=== PATIENT | male | born 1965 | race African-American/Black ===

== ENCOUNTER 2020-08-02 21:38 | Inpatient (IN) | payer SELFPAY ==
[2020-08-02 22:17] LABS: ABSOLUTE EOSINOPHILS # (AUTO) 0.1 10^3/uL (0.0-0.6); ABSOLUTE LYMPHOCYTES (AUTO) 0.7 10^3/uL (0.5-4.7); ABSOLUTE MONOCYTES (AUTO) 0.5 10^3/uL (0.1-1.4); ABSOLUTE NEUT (AUTO) 7.2 10^3/uL (1.7-8.2); BASOPHILS % (AUTO) 0.3 % (0-2); EOSINOPHILS % (AUTO) 1.1 % (0-6); HEMATOCRIT 46.8 % (37.9-51.0); HEMOGLOBIN 15.8 g/dL (13.5-17.0); LYMPHOCYTES % (AUTO) 8.4 % (13-45); MEAN CORPUSCULAR HEMOGLOBIN 32.4 pg (27.0-33.4); MEAN CORPUSCULAR HGB CONC 33.7 g/dL (32.0-36.0); MEAN CORPUSCULAR VOLUME 96 fl (80-97); MONOCYTES % (AUTO) 5.4 % (3-13); PLATELET COUNT 195 10^3/uL (150-450); RED BLOOD COUNT 4.86 10^6/uL (4.35-5.55); RED CELL DISTRIBUTION WIDTH 13.8 % (11.5-14.0); SEGMENTED NEUTROPHILS % (AUTO) 84.8 % (42-78); TOTAL CELLS COUNTED % (AUTO) 100 %; WHITE BLOOD COUNT 8.5 10^3/uL (4.0-10.5)
[2020-08-02 22:24] LABS: APPEARANCE,URINE CLEAR; BILIRUBIN,URINE NEGATIVE (NEGATIVE); COLOR,URINE YELLOW; GLUCOSE, URINE NEGATIVE (NEGATIVE); KETONES,URINE NEGATIVE (NEGATIVE); LEUKOCYTE ESTERASE,URINE NEGATIVE (NEGATIVE); NITRITE,URINE NEGATIVE (NEGATIVE); PROTEIN,URINE 30 mg/dL (NEGATIVE); URINE SPECIFIC GRAVITY 1.017; UROBILINOGEN,URINE NEGATIVE mg/dL (<2.0)
--- NOTE | 2020-08-02 22:30 | RADIOLOGY REPORT (SQ) ---
EXAM DESCRIPTION: XR CHEST 1 VIEW COMPLETED DATE/TME: 08/02/2020 21:55 CLINICAL HISTORY: 55 years, Male, shortness of breath COMPARISON: None. NUMBER OF VIEWS: 1 TECHNIQUE: Portable AP upright view of the chest was obtained at 9:50 PM. LIMITATIONS: None. FINDINGS: Heart size is normal. Lungs appear clear. There is no evidence of pleural effusion or pneumothorax. IMPRESSION: No acute abnormality as above. copyright 2010 [employer]- All Rights Reserved
[2020-08-02 22:36] LABS: ALBUMIN 4.8 g/dL (3.5-5.0); ALKALINE PHOSPHATASE 81 U/L (38-126); ANION GAP 7 (5-19); ASPARTATE AMINO TRANSFERASE 38 U/L (17-59); BILIRUBIN,DIRECT 0.3 mg/dL (0.0-0.4); BILIRUBIN,TOTAL 0.4 mg/dL (0.2-1.3); BLOOD UREA NITROGEN 16 mg/dL (7-20); CALCIUM 9.5 mg/dL (8.4-10.2); CARBON DIOXIDE 27 mmol/L (22-30); CHLORIDE 104 mmol/L (98-107); CREATINE KINASE 718 U/L (55-170); GLUCOSE 153 mg/dL (75-110); POTASSIUM 4.5 mmol/L (3.6-5.0); TOTAL PROTEIN 8.3 g/dL (6.3-8.2)
[2020-08-02 22:48] LABS: CREATINE KINASE MB 5.68 ng/mL (<4.55)
[2020-08-02 22:55] LABS: TROPONIN I 0.108 ng/mL
[2020-08-03] MEDS ORDERED: IPRATROPIUM/ALBUTEROL 0.5-2.5 MG/3 ML AMPUL NEB ONE (00:02)
--- NOTE | 2020-08-03 00:02 | ER Document Report ---
ED Respiratory Problem - General Chief Complaint: Breathing Difficulty Stated Complaint: SOB Time Seen by Provider: 08/02/20 23:14 - HPI Notes: Patient is a 55-year-old male with a past medical history of COPD who presents with shortness of breath. Patient states that he has been short of breath for about a week and has a dry cough. He denies any fevers or chills. No known Covid contacts. No nausea or vomiting. No loss of taste or smell. Patient states he has tightness in his chest when he coughs. He denies any chest pain at rest. EMS was called to the house today for shortness of breath. Per reports, he was tripoding. They placed him on 6 L nasal cannula which improved his symptoms. He is now on 3 L nasal cannula. Patient still has some tachypnea but states he is feeling much better. - Related Data Allergies/Adverse Reactions: No Known Allergies Allergy (Unverified 06/15/11 22:48) Past Medical History - General Information source: Patient - Social History Smoking Status: Current Every Day Smoker Chew tobacco use (# tins/day): No Frequency of alcohol use: None Drug Abuse: None Family History: Reviewed & Not Pertinent Patient has homicidal ideation: No Pulmonary Medical History: Reports: Hx COPD - Immunizations Hx Diphtheria, Pertussis, Tetanus Vaccination: No Review of Systems - Review of Systems Notes: CONSTITUTIONAL: No fever, fatigue or weight loss. SKIN: No rash. HENT: No congestion, ear pain, or sore throat. EYES: No recent vision problems or eye pain. CARDIOVASCULAR: Positive for chest tightness only when coughing. RESPIRATORY: Positive for cough, wheezing, shortness of breath. GASTROINTESTINAL: No abdominal pain, nausea, vomiting, bloody stools or diarrhea. MUSCULOSKELETAL: No joint pain or swelling. LYMPHATIC: No swollen glands. NEUROLOGIC: No seizures. No headache, focal weakness or sensory changes. HEMATOLOGIC: No unusual bruising or bleeding. PSYCHIATRIC: No depression or anxiety. Physical Exam - Vital signs Vitals: Pulse Ox 96 08/02/20 21:43 - General General appearance: Appears well In distress: None Notes: VITAL SIGNS: On 3 L nasal cannula. GENERAL: No acute distress, non-toxic appearance. HEAD: Normal with no signs of head trauma. EYES: Conjunctiva normal, no discharge. EARS: Hearing grossly intact. NOSE: Normal. NECK: Normal range of motion. Supple. No JVD. CHEST: Wheezing in all lung steward. CARDIAC: Regular rate and rhythm. S1 and S2, without murmurs, gallops, or rubs. VASCULAR: No Edema. ABDOMEN: Normal and soft with no tenderness. MUSCULOSKELETAL: Good range of motion of all major joints. Extremities without clubbing, cyanosis or edema. NEUROLOGICAL: Alert and oriented x 3. No focal sensory or strength deficits. Speech normal. Follows commands appropriately. PSYCHIATRIC: Normal Affect, judgement and mood. SKIN: Normal appearance with no rashes or lesions. Course - Re-evaluation Re-evalutation: 08/03/20 00:01 Patient states he is feeling better. He does not normally wear oxygen at home. Patient does have an elevated troponin which is different from his baseline. He is denying any chest pain at rest and only when he coughs. Patient second troponin is slightly elevated. I reassessed him. He is denying any chest pain. I will discuss with the hospitalist for admission for COPD exacerbation 08/03/20 02:41 - Vital Signs Vital signs: Temp Pulse Resp BP Pulse Ox 97.9 F 70 16 108/64 93 08/03/20 23:33 08/04/20 02:00 08/04/20 01:46 08/03/20 23:33 08/04/20 01:46 - Laboratory Results Result Diagrams: 08/04/20 05:05 08/04/20 05:05 Laboratory Results Interpreted: 08/02/20 08/02/20 08/02/20 22:04 22:04 22:04 Lymph % (Auto) 8.4 L Seg Neutrophils % 84.8 H Glucose 153 H Creatine Kinase 718 H CK-MB (CK-2) 5.68 H Total Protein 8.3 H Urine Protein 08/02/20 22:04 Lymph % (Auto) Seg Neutrophils % Glucose Creatine Kinase CK-MB (CK-2) Total Protein Urine Protein 30 H Critical Laboratory Results Reviewed: Yes Attending or Supervising Physician who Reviewed Labs: MARYBEL RENNER - Radiology Results Critical Radiology Results Reviewed: No Critical Results - EKG Interpretation by Ak EKG shows normal: Sinus rhythm Rate: Tachycardia Rhythm: NSR When compared to previous EKG there are: Previous EKG unavailable Additional EKG results interpreted by me: 08/03/20 01:56 Sinus tachycardia at a rate of 116. QTc 439. No acute ST changes. Artifact present. No previous EKG available for comparison. Discharge - Discharge Clinical Impression: COPD exacerbation, Elevated troponin Condition: Stable Disposition: ADMITTED INPATIENT Admitting Provider: Samira (Hospitalist) Unit Admitted: Telemetry
[2020-08-03] MEDS ORDERED: ASPIRIN 325 MG TABLET PO ONE (00:03)
[2020-08-03] MEDS ORDERED: NORMAL SALINE 1000 ML 1,000 ML IV ONE (02:33)
[2020-08-03] MEDS ORDERED: IPRATROPIUM/ALBUTEROL 0.5-2.5 MG/3 ML AMPUL NEB PRN (03:02)
--- NOTE | 2020-08-03 03:16 | PDOC H&P ---
History of Present Illness Admission Date/PCP: 08/03/20 03:02 TAYLOR DAWKINS MD History of Present Illness: INOCENCIA COOPER is a 55 year old male with a history of COPD who still smokes who came in with a history of shortness of breath since 9:00 Monday morning. He said he switched to the vape stick a couple of days ago but he has been smoking a pack a day or more for decades. He said he had cut himself down to a half a pack a day before he switched over to the vape stick a couple of days ago. He said he been feeling fine and was in his usual state of health until Monday mo rn. He said he was short of breath but was denying any chest pain. He had not been running a fever. He had not been coughing. He said he did a nebulizer treatment around 9 AM Monday morning and he felt a little better afterwards. He said he was short of breath again throughout the day and around 4 PM Monday he did another breathing treatment. He said his was at work at the [employer] in [place] and he called her around 7:30 PM Monday and was telling that he was still feeling short of breath and she convinced him to call EMS and he was subsequently brought to this hospital. He has had another nebulizer treatment here. They put him on a little bit of oxygen and he says he feels better when he sitting up. He is not wheezing as bad now, but he said the EMS guys told him that they could hear him wheezing as soon as they came through his front door. He says his only known medical problem is COPD. He said he knows that he needs to quit smoking altogether. His troponin in the ER was slightly elevated but his EKG was unremarkable and he was not complaining of any chest pain at all. He said he is never had any kind of cardiac work-up before. Past Medical History Pulmonary Medical History: Reports: Chronic Obstructive Pulmonary Disease (COPD) Past Surgical History Past Surgical History: Reports: None Social History Smoking Status: Current Every Day Smoker Electronic Cigarette use?: No Family History Family History: Hyperlipidemia, Hypertension, Thyroid Disfunction Parental Family History Reviewed: Yes Children Family History Reviewed: Yes Sibling(s) Family History Reviewed.: Yes Medication/Allergy Home Medications: No Home Medications 06/15/11 Allergies/Adverse Reactions: No Known Allergies Allergy (Unverified 06/15/11 22:48) Review of Systems All systems: reviewed and no additional remarkable complaints except as stated - All systems were reviewed and were negative except as noted in the HPI Physical Exam Vital Signs: Temp Pulse Resp BP Pulse Ox 98.5 F 116 H 17 105/79 95 08/02/20 21:44 08/02/20 21:44 08/03/20 02:00 08/03/20 02:00 08/03/20 02:00 Intake & Output 08/01/20 08/02/20 08/03/20 06:59 06:59 06:59 Weight 74.843 kg General appearance: PRESENT: no acute distress, cooperative Head exam: PRESENT: atraumatic, normocephalic Eye exam: PRESENT: EOMI, PERRLA. ABSENT: conjunctival injection, nystagmus, scleral icterus Ear exam: PRESENT: normal external ear exam Mouth exam: PRESENT: moist, neck supple Throat exam: ABSENT: post pharyngeal erythema Neck exam: PRESENT: full ROM. ABSENT: carotid bruit, JVD, lymphadenopathy, meningismus, tenderness, thyromegaly Respiratory exam: PRESENT: prolonged expiratory phas, rhonchi, symmetrical, unlabored, wheezes - Faint end expiratory, worse on the right. ABSENT: accessory muscle use, chest wall tenderness, crackles, tachypnea Cardiovascular exam: PRESENT: RRR, +S1, +S2 Pulses: PRESENT: normal carotid pulses Vascular exam: PRESENT: normal capillary refill GI/Abdominal exam: PRESENT: normal bowel sounds, soft. ABSENT: distended, guarding, rebound, tenderness Extremities exam: ABSENT: clubbing, pedal edema Musculoskeletal exam: PRESENT: normal inspection. ABSENT: deformity Neurological exam: PRESENT: alert, awake, oriented to person, oriented to place, oriented to time, oriented to situation, CN II-XII grossly intact. ABSENT: motor sensory deficit Psychiatric exam: PRESENT: appropriate affect, normal mood Skin exam: PRESENT: dry, warm Results Laboratory Results: 08/02/20 22:04 08/02/20 22:04 08/02/20 08/02/20 08/02/20 22:04 22:04 22:04 WBC 8.5 RBC 4.86 Hgb 15.8 Hct 46.8 MCV 96 MCH 32.4 MCHC 33.7 RDW 13.8 Plt Count 195 Seg Neutrophils % 84.8 H Sodium 137.8 Potassium 4.5 Chloride 104 Carbon Dioxide 27 Anion Gap 7 BUN 16 Creatinine 0.96 Est GFR ( Amer) > 60 Glucose 153 H Calcium 9.5 Total Bilirubin 0.4 AST 38 Alkaline Phosphatase 81 Total Protein 8.3 H Albumin 4.8 Urine Color YELLOW Urine Appearance CLEAR Urine pH 5.0 Ur Specific [place] 1.017 Urine Protein 30 H Urine Glucose (UA) NEGATIVE Urine Ketones NEGATIVE Urine Blood NEGATIVE Urine Nitrite NEGATIVE Ur Leukocyte Esterase NEGATIVE Urine WBC (Auto) 5 Urine RBC (Auto) 0 08/02/20 08/02/20 08/03/20 22:04 22:04 01:00 Creatine Kinase 718 H CK-MB (CK-2) 5.68 H Troponin I 0.108 0.229 NT-Pro-B Natriuret Pep 24 Impressions: Chest X-Ray 08/02/20 21:41 IMPRESSION: No acute abnormality as above. copyright 2010 [employer]- All Rights Reserved Assessment and Plan - Diagnosis (1) COPD with acute exacerbation Is this a current diagnosis for this admission?: Yes (2) Current every day smoker Is this a current diagnosis for this admission?: Yes (3) Elevated troponin Is this a current diagnosis for this admission?: Yes - Plan Summary Summary: He was not started on any steroids in the ER, so we will put him on a few doses of IV Solu-Medrol, which I think will produce a good effect. As needed DuoNeb treatments. We will wean O2 as tolerated. We will put him empirically on some doxycycline as it may reduce the number of days that he is symptomatic. I think his elevated troponin is most likely a type II event due to increased demand. EKG is unremarkable. We will keep him on telemetry and give him an aspirin and will continue to trend his troponins. If he resolves back to baseline, we may need to set him up with a stress test as an outpatient because he has been a smoker for a very long time and would probably benefit from a work-up. - Time Time Spent with patient: 35 or more minutes Anticipated Discharge Disposition: Home, Self Care Anticipated Discharge Timeframe: within 72 hours - Inpatient Certification Based on my medical assessment, after consideration of the patient's comorbidities, presenting symptoms, or acuity I expect that the services needed warrant INPATIENT care.: Yes I certify that my determination is in accordance with my understanding of Medicare's requirements for reasonable and necessary INPATIENT services [42 CFR 412.3e].: Yes Medical Necessity: Need Close Monitoring Due to Risk of Patient Decompensation, Need For Continuous Telemetry Monitoring, Risk of Complication if Not Cared For in Hospital
[2020-08-03] MEDS: METHYLPREDNISOLONE INJ 40 MG/1 ML SDV IV SCH ×3 (05:06→21:06)
[2020-08-03] MEDS ORDERED: DOXYCYCLINE HYCLATE 100 MG TABLET PO ONE (05:54)
[2020-08-03] MEDS: DOXYCYCLINE HYCLATE 100 MG TABLET PO SCH ×2 (06:04→09:59)
[2020-08-03] MEDS: HEPARIN SOD (PORCINE) 5,000 UNIT/ML 1 ML VIAL SUBCUT SCH ×3 (06:05→21:05)
--- NOTE | 2020-08-03 06:10 | EKG REPORT ---
SEVERITY:- ABNORMAL ECG - SINUS TACHYCARDIA RIGHT ATRIAL ABNORMALITY BORDERLINE RIGHT AXIS DEVIATION : Confirmed by: Andry Ng MD 03-Aug-2020 06:10:08
--- NOTE | 2020-08-03 10:00 | EKG REPORT ---
SEVERITY:- ABNORMAL ECG - SINUS RHYTHM PROBABLE ANTEROSEPTAL INFARCT, AGE INDETERM Minimal ST elevation in inferior leads ABNORMAL T, CONSIDER ISCHEMIA, ANT-LAT LEADS PROLONGED QT INTERVAL : Confirmed by: Brian Peres MD 03-Aug-2020 10:00:04
[2020-08-03] MEDS: ASPIRIN 81 MG TABLET, CHEWABLE PO SCH (10:02)
[2020-08-03] MEDS: IPRATROPIUM/ALBUTEROL 0.5-2.5 MG/3 ML AMPUL NEB SCH ×2 (13:30→19:51)
--- NOTE | 2020-08-03 21:08 | XCELERA REPORT ---
[address] [address] Transthoracic Echocardiogram Report Name: INOCENCIA COOPER Age: 55 yrs Gender: Male : 1965 Patient Status: Inpatient Patient Location: [address] [place] [address] Study Date: 08/03/2020 06:20 PM Height: 76 in Weight: 157 lb BSA: 2.0 m2 Procedure: A complete two-dimensional transthoracic echocardiogram was performed (2D, M-mode, spectral and color flow Doppler). The study was technically limited with all images being suboptimal in quality. Images from the parasternal window were difficult to obtain and are suboptimal in quality. The apical views were difficult to obtain and are suboptimal in quality. Reason For Study: new ecg changes, Elevated troponin Ordering Physician: MAGDALENA SCHAFER Performed By: Kirstie Queen Interpretation Summary The left ventricle is grossly normal size. Left ventricular systolic function is normal. The Ejection Fraction estimate is 55-60%. Doppler measurements suggest impaired left ventricular relaxation, which is associated with grade I/IV or mild diastolic dysfunction. Regional wall motion abnormalities cannot be excluded due to limited visualization. Aortic, tricuspid and pulmonic valves are not well visualized therefore cannot comment on possible structural abnormalities. No prior studies for comparison. MMode/2D Measurements & Calculations RVDd: 2.2 cm LVIDd: 4.9 cm FS: 30.5 % Ao root diam: 3.3 cm IVSd: 0.98 cm LVIDs: 3.4 cm EDV(Teich): Ao root area: 113.3 ml LVPWd: 0.76 cm 8.3 cm2 ESV(Teich): 47.8 mlLA dimension: 2.1 cm EF(Teich): 57.8 % LVLd ap4: 6.7 cm SV(MOD-sp4): EDV(MOD-sp4): 46.0 ml 68.0 ml LVLs ap4: 5.0 cm ESV(MOD-sp4): 22.0 ml EF(MOD-sp4): 67.6 % Doppler Measurements & Calculations MV E max rosa: MV P1/2t max rosa: Ao V2 max: LV V1 max P.7 cm/sec 77.4 cm/sec 108.1 cm/sec 3.3 mmHg MV A max rosa: MV P1/2t: 60.3 msec Ao max PG: LV V1 max: 66.5 cm/sec 4.7 mmHg 90.2 cm/sec MVA(P1/2t): 3.6 cm2 MV E/A: 0.94 MV dec slope: 375.6 cm/sec2 MV dec time: 0.24 sec PA V2 max: MV P1/2t-pr_phl: 84.5 cm/sec 60.3 msec PA max P.9 mmHg Left Ventricle The left ventricle is grossly normal size. Left ventricular systolic function is normal. The Ejection Fraction estimate is 55-60%. Doppler measurements suggest impaired left ventricular relaxation, which is associated with grade I/IV or mild diastolic dysfunction. Regional wall motion abnormalities cannot be excluded due to limited visualization. Right Ventricle The right ventricle is normal in size, thickness and function. The right ventricular systolic function is normal. Atria The right atrium is normal. The left atrial size is normal. Interarterial septum not well visualized and not well dopplered. Cannot comment on ASD/PFO presence. Mitral Valve There is mild mitral leaflet calcification. There is no evidence of mitral valve prolapse. There is no mitral valve stenosis. There is no mitral regurgitation noted. Aortic Valve The aortic valve is not well visualized secondary to technical limitations. There is no aortic valve stenosis. No aortic regurgitation is present. Tricuspid Valve The tricuspid valve is not well visualized secondary to technical limitations. No tricuspid regurgitation. Pulmonic Valve The pulmonic valve is not well visualized. There is no pulmonic valvular stenosis. There is no pulmonic valvular regurgitation. Great Vessels The inferior vena cava appeared normal and decreased > 50% with respiration (RAP 5-10 mmHg). Effusions There is no pericardial effusion. Large left pleural effusion. : MAGDALENA SCHAFER Antonio
[2020-08-04] MEDS: IPRATROPIUM/ALBUTEROL 0.5-2.5 MG/3 ML AMPUL NEB SCH ×3 (01:46→13:05)
[2020-08-04] MEDS: HEPARIN SOD (PORCINE) 5,000 UNIT/ML 1 ML VIAL SUBCUT SCH ×2 (05:05→13:25)
[2020-08-04] MEDS: METHYLPREDNISOLONE INJ 40 MG/1 ML SDV IV SCH (05:05)
[2020-08-04 05:48] LABS: HEMATOCRIT 45.5 % (37.9-51.0); HEMOGLOBIN 15.2 g/dL (13.5-17.0); MEAN CORPUSCULAR HEMOGLOBIN 31.8 pg (27.0-33.4); MEAN CORPUSCULAR HGB CONC 33.3 g/dL (32.0-36.0); MEAN CORPUSCULAR VOLUME 95 fl (80-97); PLATELET COUNT 189 10^3/uL (150-450); RED BLOOD COUNT 4.77 10^6/uL (4.35-5.55); RED CELL DISTRIBUTION WIDTH 14.1 % (11.5-14.0); WHITE BLOOD COUNT 9.3 10^3/uL (4.0-10.5)
[2020-08-04 06:05] LABS: ANION GAP 9 (5-19); BLOOD UREA NITROGEN 19 mg/dL (7-20); CALCIUM 9.4 mg/dL (8.4-10.2); CARBON DIOXIDE 23 mmol/L (22-30); CHLORIDE 105 mmol/L (98-107); CHOLESTEROL 186.86 mg/dL (0-200); GLUCOSE 151 mg/dL (75-110); POTASSIUM 4.5 mmol/L (3.6-5.0); TRIGLYCERIDES 53 mg/dL (<150)
[2020-08-04 06:16] LABS: DIRECT LDL 60 mg/dL (<100)
--- NOTE | 2020-08-04 09:28 | EKG REPORT ---
SEVERITY:- ABNORMAL ECG - SINUS RHYTHM LEFT POSTERIOR FASCICULAR BLOCK PROBABLE INFERIOR INFARCT, AGE INDETERMINATE ABNORMAL T, PROBABLE ISCHEMIA, ANT-LAT LEADS PROLONGED QT INTERVAL : Confirmed by: Brian Peres MD 04-Aug-2020 09:26:31
[2020-08-04] MEDS: ASPIRIN 81 MG TABLET, CHEWABLE PO SCH (09:35)
--- NOTE | 2020-08-04 09:53 | PDOC CONSULTATION ---
Consultation Consult Date: 08/04/20 Attending physician:: MAGDALENA SCHAFER Provider Consulted: BERNABE BOBBY Consult reason:: Elevated troponin History of Present Illness Admission Date/PCP: 08/03/20 03:02 TAYLOR DAWKINS MD History of Present Illness: INOCENCIA COOPER is a 55 year old male with a history of COPD, active smoking, without history of coronary artery disease and with questionable family history of premature coronary artery disease who is consulted to our service for evaluation of abnormal EKG and elevated troponins. The patient was evaluated in our emergency room on 08/02/2020 when he was brought in by EMS due to shortness of breath for several days. He was eventually admitted and diagnosed with COPD exacerbation. His initial EKG was unremarkable although he did have elevated troponins. Eventually his EKG changed and now demonstrates nonspecific ST-T wave changes particularly significant T wave inversions however the patient continues to be asymptomatic. When specifically asked, he adamantly denies chest pain, diaphoresis, other anginal equivalents, palpitations, syncope and presyncope. 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 He has remained asymptomatic since admission. His telemetry shows normal sinus rhythm and episodes of sinus tachycardia. His troponin peaked at 0.300 and is trending now with the most recent one being 0.156. Physical exam on 08/04/2020: GENERAL: Pleasant and conversational. Oriented x3 with normal mood. Not in acute distress. Well groomed and well developed. HEENT: Normocephalic, atraumatic. Pupils equal. Sclerae anicteric. Oropharynx moist. NECK: No JVD. No carotid bruits. LUNGS: Deep inspiratory, faint wheezing at the left lower lobe. Normal respira tory effort without the use of accessory muscles or intercostal retractions. CARDIOVASCULAR: Regular rate and rhythm, normal S1 and S2 without murmurs, rubs, or gallops. PMI not displaced. ABDOMEN: No masses or tenderness to palpation. No bruit. No splenomegaly or hepatomegaly. No abdominal aorta bruit noted. EXTREMITIES: No edema, no cyanosis, no clubbing. +2 pulses femoral and pedal pulses bilaterally. SKIN: No lesions or rashes. MUSCULOSKELETAL: No chest tenderness to palpation. NEUROLOGIC: Nonfocal. No gross sensory or motor deficits bilateral upper or lower extremities. Cardiac studies: Echocardiogram on 08/03/2020: -Normal LV systolic function. -EF 55 to 60%. -Grade 1 diastolic dysfunction. -Cannot assess for regional wall motion abnormalities. -Aortic, tricuspid and pulmonic valves were not well visualized. -No prior studies for comparison. Past Medical History Pulmonary Medical History: Reports: Chronic Obstructive Pulmonary Disease (COPD) Psychiatric Medical History: Denies: Depression Past Surgical History Past Surgical History: Reports: None Social History Smoking Status: Current Every Day Smoker Cigarettes Packs Per Day: 0.5 Electronic Cigarette use?: Yes Frequency of Alcohol Use: Social Hx Recreational Drug Use: No Drugs: None Hx Prescription Drug Abuse: No Family History Family History: Reviewed & Not Pertinent Parental Family History Reviewed: Yes Children Family History Reviewed: Yes Sibling(s) Family History Reviewed.: Yes Medication/Allergy Home Medications: Albuterol Sulfate [Proair Digihaler] 2 puff IH Q4HP PRN 08/03/20 Ipratropium/Albuterol Sulfate [Duoneb 3 ml Ampul] 3 ml NEB RTQ6HP PRN 08/03/20 Allergies/Adverse Reactions: No Known Allergies Allergy (Unverified 06/15/11 22:48) Physical Exam Vital Signs: Temp Pulse Resp BP Pulse Ox 97.9 F 70 16 108/64 93 08/03/20 23:33 08/04/20 02:00 08/04/20 01:46 08/03/20 23:33 08/04/20 01:46 Intake & Output 08/03/20 08/04/20 08/05/20 06:59 06:59 06:59 Intake Total 1260 985 Balance 1260 985 Weight 74.3 kg 68.7 kg Results Laboratory Results: 08/04/20 05:05 08/04/20 05:05 08/04/20 08/04/20 05:05 05:05 WBC 9.3 RBC 4.77 Hgb 15.2 Hct 45.5 MCV 95 MCH 31.8 MCHC 33.3 RDW 14.1 H Plt Count 189 Sodium 136.9 L Potassium 4.5 Chloride 105 Carbon Dioxide 23 Anion Gap 9 BUN 19 Creatinine 0.90 Est GFR ( Amer) > 60 Glucose 151 H Calcium 9.4 Triglycerides 53 Cholesterol 186.86 LDL Cholesterol Direct 60 VLDL Cholesterol 11.0 HDL Cholesterol 110 08/02/20 08/02/20 08/03/20 22:04 22:04 01:00 Creatine Kinase 718 H CK-MB (CK-2) 5.68 H Troponin I 0.108 0.229 NT-Pro-B Natriuret Pep 24 08/03/20 08/03/20 08/03/20 07:17 12:54 19:48 Creatine Kinase CK-MB (CK-2) Troponin I 0.300 0.233 0.156 NT-Pro-B Natriuret Pep Impressions: Chest X-Ray 08/02/20 21:41 IMPRESSION: No acute abnormality as above. copyright 2010 [employer]- All Rights Reserved 08/04/20 05:05 08/04/20 05:05 MCV 95 fl (80-97) 08/04/20 05:05 MCH 31.8 pg (27.0-33.4) 08/04/20 05:05 MCHC 33.3 g/dL (32.0-36.0) 08/04/20 05:05 RDW 14.1 % (11.5-14.0) H 08/04/20 05:05 Seg Neutrophils % 84.8 % (42-78) H 08/02/20 22:04 Chloride 105 mmol/L (98-107) 08/04/20 05:05 Carbon Dioxide 23 mmol/L (22-30) 08/04/20 05:05 Anion Gap 9 (5-19) 08/04/20 05:05 Est GFR ( Amer) > 60 (>60) 08/04/20 05:05 Glucose 151 mg/dL (75-110) H 08/04/20 05:05 Calcium 9.4 mg/dL (8.4-10.2) 08/04/20 05:05 Total Bilirubin 0.4 mg/dL (0.2-1.3) 08/02/20 22:04 AST 38 U/L (17-59) 08/02/20 22:04 Alkaline Phosphatase 81 U/L (38-126) 08/02/20 22:04 Total Protein 8.3 g/dL (6.3-8.2) H 08/02/20 22:04 Albumin 4.8 g/dL (3.5-5.0) 08/02/20 22:04 Triglycerides 53 mg/dL (<150) 08/04/20 05:05 Cholesterol 186.86 mg/dL (0-200) 08/04/20 05:05 LDL Cholesterol Direct 60 mg/dL (<100) 08/04/20 05:05 VLDL Cholesterol 11.0 mg/dL (10-31) 08/04/20 05:05 HDL Cholesterol 110 mg/dL (>40) 08/04/20 05:05 Urine Color YELLOW 08/02/20 22:04 Urine Appearance CLEAR 08/02/20 22:04 Urine pH 5.0 (5.0-9.0) 08/02/20 22:04 Ur Specific [place] 1.017 08/02/20 22:04 Urine Protein 30 mg/dL (NEGATIVE) H 08/02/20 22:04 Urine Glucose (UA) NEGATIVE mg/dL (NEGATIVE) 08/02/20 22:04 Urine Ketones NEGATIVE mg/dL (NEGATIVE) 08/02/20 22:04 Urine Blood NEGATIVE (NEGATIVE) 08/02/20 22:04 Urine Nitrite NEGATIVE (NEGATIVE) 08/02/20 22:04 Ur Leukocyte Esterase NEGATIVE (NEGATIVE) 08/02/20 22:04 Urine WBC (Auto) 5 /HPF 08/02/20 22:04 Urine RBC (Auto) 0 /HPF 08/02/20 22:04 08/02/20 08/02/20 08/03/20 22:04 22:04 01:00 Creatine Kinase 718 H CK-MB (CK-2) 5.68 H Troponin I 0.108 0.229 NT-Pro-B Natriuret Pep 24 08/03/20 08/03/20 08/03/20 07:17 12:54 19:48 Creatine Kinase CK-MB (CK-2) Troponin I 0.300 0.233 0.156 NT-Pro-B Natriuret Pep Current Medication List Generic Name Dose Route Start Last Admin Trade Name Freq PRN Reason Stop Dose Admin Albuterol/Ipratropium 3 ml 08/03/20 03:02 08/03/20 10:11 Ipratropium/Albuterol 0.5-2.5 Mg/3 Ml Ampul NEB 09/02/20 03:01 3 ml RTQ4HP PRN Administration SHORTNESS OF BREATH Albuterol/Ipratropium 3 ml 08/03/20 14:00 08/04/20 01:46 Ipratropium/Albuterol 0.5-2.5 Mg/3 Ml Ampul NEB 09/02/20 13:59 3 ml RTQ6 JACLYN Administration Aspirin 81 mg 08/03/20 10:00 08/03/20 10:02 Aspirin 81 Mg Tablet, Chewable PO 09/02/20 09:59 81 mg DAILY JACLYN Administration Heparin Sodium (Porcine) 5,000 unit 08/03/20 06:00 08/04/20 05:05 Heparin Sod (Porcine) 5,000 Unit/Ml 1 Ml Vial SUBCUT 09/02/20 05:59 Not Given Q8 JACLYN Methylprednisolone Sodium Succinate 40 mg 08/03/20 04:00 08/04/20 05:05 Methylprednisolone Inj 40 Mg/1 Ml Sdv IV 09/02/20 03:59 40 mg Q8 JACLYN Administration Discontinued Medications Generic Name Dose Route Start Last Admin Trade Name Freq PRN Reason Stop Dose Admin Albuterol/Ipratropium 3 ml 08/03/20 00:02 08/03/20 00:09 Ipratropium/Albuterol 0.5-2.5 Mg/3 Ml Ampul NEB 08/03/20 00:03 3 ml NOW ONE Administration Aspirin 325 mg 08/03/20 00:03 08/03/20 00:09 Aspirin 325 Mg Tablet PO 08/03/20 00:04 325 mg NOW ONE Administration Doxycycline Hyclate 100 mg 08/03/20 04:00 08/03/20 09:59 Doxycycline Hyclate 100 Mg Tablet PO 08/10/20 03:59 Not Given Q12 JACLYN Doxycycline Hyclate Confirm 08/03/20 05:54 08/03/20 06:04 Doxycycline Hyclate 100 Mg Tablet Administered 08/03/20 05:55 Not Given Dose 100 mg PO .STK-MED ONE Sodium Chloride 1,000 mls @ 0 mls/hr 08/03/20 02:33 08/03/20 04:40 Nacl 0.9% 1000 Ml Iv Soln IV 08/03/20 02:34 Infused BOLUS ONE Infusion Wide Open Assessment & Plan - Diagnosis (1) Elevated troponin Is this a current diagnosis for this admission?: Yes Plan: The patient does have an elevated troponin which is downtrending in the presence of abnormal EKG but no angina or anginal equivalents. He does have cardiac risk factors for coronary artery disease therefore he warrants further ischemic assessment. Given his normal ejection fraction and grossly normal wall motion on his echocardiogram yesterday as well as his ability to exercise we will plan for exercise nuclear stress test tomorrow morning. When I discussed my plan with him he verbalized that his is having surgery tomorrow morning and would like to be discharged from the hospital to be with her. I explained to him that my preference is for him to stay in the hospital can do this as an inpatient for an expedited ischemic work-up given his EKG changes and elevated troponin, he was also explained that he wanted to leave the hospital he would have to sign an AMA form. At the end of the conversation he had not made a final decision. I instructed him to let the nurses and the hospitalist know immediately whether he wants to stay or leave AMA for me to order the radioisotope. In the meantime, we will plan for stress test tomorrow. Recommendations: -Do not start beta-cindy yet in preparation for exercise nuclear stress test tomorrow. -Start Lipitor 40 mg nightly. -LFTs. -Plan for exercise nuclear stress test tomorrow if patient decides to stay in the hospital. -N.p.o. after midnight. -Continue with cardiac telemetry. (2) COPD with acute exacerbation Is this a current diagnosis for this admission?: Yes Plan: Further recommendations per hospitalist team.
[2020-08-04] MEDS ORDERED: METHYLPREDNISOLONE INJ 40 MG/1 ML SDV IV SCH (10:00)
--- NOTE | 2020-08-04 11:45 | PDOC PROGRESS REPORT ---
Subjective Date:: 08/04/20 Subjective:: Patient states he feels better. Shortness of breath has improved remarkably. H e is not having any chest pain. Reason For Visit: COPD EXACERBATION,ELEBATED TROPONIN Physical Exam Vital Signs: Temp Pulse Resp BP Pulse Ox 97.9 F 84 18 150/89 H 96 08/04/20 08:36 08/04/20 07:42 08/04/20 07:42 08/04/20 07:42 08/04/20 07:42 Intake & Output 08/03/20 08/04/20 08/05/20 06:59 06:59 06:59 Intake Total 1260 985 330 Balance 1260 985 330 Weight 74.3 kg 68.7 kg General appearance: PRESENT: no acute distress, cooperative Neck exam: ABSENT: JVD Respiratory exam: PRESENT: symmetrical, unlabored, wheezes - Minimal respiratory wheeze. ABSENT: tachypnea Cardiovascular exam: PRESENT: RRR, +S1, +S2. ABSENT: tachycardia GI/Abdominal exam: PRESENT: soft. ABSENT: rebound, rigid, tenderness Musculoskeletal exam: PRESENT: ambulatory Neurological exam: PRESENT: alert, awake, oriented to person, oriented to place, oriented to time, oriented to situation Results Laboratory Results: 08/04/20 05:05 08/04/20 05:05 08/04/20 08/04/20 05:05 05:05 WBC 9.3 RBC 4.77 Hgb 15.2 Hct 45.5 MCV 95 MCH 31.8 MCHC 33.3 RDW 14.1 H Plt Count 189 Sodium 136.9 L Potassium 4.5 Chloride 105 Carbon Dioxide 23 Anion Gap 9 BUN 19 Creatinine 0.90 Est GFR ( Amer) > 60 Glucose 151 H Calcium 9.4 Triglycerides 53 Cholesterol 186.86 LDL Cholesterol Direct 60 VLDL Cholesterol 11.0 HDL Cholesterol 110 08/02/20 08/02/20 08/03/20 22:04 22:04 01:00 Creatine Kinase 718 H CK-MB (CK-2) 5.68 H Troponin I 0.108 0.229 NT-Pro-B Natriuret Pep 24 08/03/20 08/03/20 08/03/20 07:17 12:54 19:48 Creatine Kinase CK-MB (CK-2) Troponin I 0.300 0.233 0.156 NT-Pro-B Natriuret Pep Impressions: Chest X-Ray 08/02/20 21:41 IMPRESSION: No acute abnormality as above. copyright 2010 [employer]- All Rights Reserved Assessment and Plan - Diagnosis (1) COPD with acute exacerbation Is this a current diagnosis for this admission?: Yes (2) Current every day smoker Is this a current diagnosis for this admission?: Yes (3) Elevated troponin Is this a current diagnosis for this admission?: Yes - Plan Summary Summary: Yesterday, patient's troponin is peaked around 0.3. EKGs did show some new nonspecific T wave changes. I consulted cardiology who evaluated patient this morning and recommended ischemic evaluation with stress test while inpatient given the likelihood of underlying CAD. Plan was to do the stress test tomorrow. My encounter with patient this morning, patient stated that he wanted to be discharged today because his has a surgical procedure tomorrow morning he would like to take her to the hospital and bring her back and also be there while she was at home. I explained to him the necessity of the recommend ation for him to get the stress test done inpatient and also explained to him the risks of having a myocardial infarction or cardiac event and consequences of this should he choose to go home without having the stress test done. He understood the risk and opted to sign out AMA. I will give him prescriptions for his COPD exacerbation, sublingual nitro as needed, baby aspirin and will try to set him up with an outpatient follow-up cardiology appointment. - Time Time Spent with patient: 15-24 minutes Anticipated Discharge Disposition: Home, Self Care Anticipated Discharge Timeframe: n/a
--- NOTE | 2020-08-04 11:45 | Left Against Medical Advice ---
Against Medical Advice Admission Date/Time: 08/03/20 03:02 Primary Care Provider: TAYLOR DAWKINS MD Date of Patient Emigration: 08/04/20 - Diagnosis: (1) COPD with acute exacerbation Is this a current diagnosis for this admission?: Yes (2) Current every day smoker Is this a current diagnosis for this admission?: Yes (3) Elevated troponin Is this a current diagnosis for this admission?: Yes - Summary: Summary: Please see Admission and Progress Notes as well. INOCENCIA COOPER is a 55 M, who LEFT AGAINST MEDICAL ADVICE. The Patient was admitted on 08/03/20 03:02.
[2020-08-04 13:00] VITALS: BP 128/70
--- OUTSIDE RECORDS SUMMARY | 2020-08-05 09:17 | XMS REPORT ---
:1965 [facility] [place] [address] [place] [id number] Care Team Providers Name Role Phone gK Attending Clinician Unavailable BUSTEED, A Attending Clinician Unavailable MARCELINA PORTILLO Attending Clinician Unavailable BUSTEED, A Admitting Clinician Unavailable Allergies, Adverse Reactions, Alerts This patient has no known allergies or adverse reactions. Medications Ordered Filled Start Stop Current Ordering Indication Dosage Frequency Signature Comments Components Medication Medication Date Date Medication? Clinician (SIG) Name Name Hydrocodone 2019-0 Yes 5 Every 12 /Chlorphen 1-24 Hours as Polistir* 08:45: needed for 00 Cough Albuterol 2019-0 Yes 2 Every 4 Sulfate 1-24 Hours as 08:32: needed for 00 Shortness Of Breath Prednisone 2019-0 Yes 1 As 1-24 Directed 08:32: Days 1-4: 00 Take 6 tabs; days 5-8: take 4 tabs; days 9-12: take 2 tabs; Hydrocodone 2019- No 5 Every 12 /Chlorphen -25 - Hours Polistir* 10:16: 00:00 00 :00 Azithromyci 2017-0 2019- No 1 2 Today & n -25 08-04 1 Day 2-5 10:11: 00:00 00 :00 Azithromyci 2017-0 No August 1 2 Today & n 1-25 Pa-C 1 Day 2-5 (Zithromax 00:00: Mortgage Professional Z-Ernst*) 250 00 Mg Tablet Hydrocodone No August 5 Every 12 /Chlorphen 1-25 Pa-C Hours Polistir* 00:00: Mortgage Professional (Tussionex* 00 ) 473 Ml Marlen.er.12h Acetaminoph 2012-07 2020- No 1 As Needed en/Hydrocod 18 01-23 Every 6 To one Bitart 03:33: 00:00 8 Hours 00 :00 Penicillin 2012-07- No 500 Every 6 V Potassium -18 08-01 Hours 03:33: 00:00 00 :00 Acetaminoph 2012-07 No Juliana C 1 As Neede d en/Hydrocod -18 Romero Do Every 6 To one Bitart 00:00: 8 Hours (Hydrocodon 00 -Acetaminop hen 5-500) 5 Mg/500 Mg Tab Penicillin 2012-07- No Juliana C 500 Every 6 V Potassium -28 Romero Do Hours (Pen Vk 00:00: 00:00 Tab*) 500 00 :00 Mg Tablet Acetaminoph 2012- No 1 As Needed en/Hydrocod 11-3018 Every 6 To one Bitart 00:42: 00:00 8 Hours 00 :00 Cyclobenzap 2012- No 10 Prn Q8h rine Hcl 11-30 Muscle 00:42: 00:00 Spasm 00 :00 Acetaminoph 2012- No Juliana C 1 As Neede d en/Hydrocod 11-3018 Romero Do Every 6 To one Bitart 00:00: 00:00 8 Hours (Hydrocodon 00 :00 -Acetaminop hen 5-500) 5 Mg/500 Mg Tab, 1 Tablet Oral Cyclobenzap 2012- No Juliana C 10 Prn Q8h rine Hcl 10 11-3018 Romero Do Muscle Mg Tab, 10 00:00: 00:00 Spasm Mg Oral 00 :00 Cyclobenzap 2006- No 10 Prn Q8h rine Hcl 07-24 Muscle 15:57: 00:00 Spasm No 00 :00 driving or heavy lifting. May cause drowsiness . Ibuprofen 2006- No 1 Prn Q6h -10 Pain/Fever 15:57: 00:00 Take with 00 :00 food. Oxycodone/A 2006- No Q 4 Hr Prn cetaminophe 07-2410 Pain No n 15:57: 00:00 driving or 00 :00 heavy lifting. May cause drowsiness . Cyclobenzap 2006- No Elyssa N 10 Prn Q8h rine Hcl 10 07-24 Aminata Sandoval Muscle Mg Tab, 10 00:00: 00:00 Spasm Mg Oral 00 :00 Ibuprofen 2006- No Elyssa N 1 Prn Q6h (Ibuprofen 07-24 Aminata Sandoval Pain/Fever 800 Mg) 800 00:00: 00:00 Mg Tablet, 00 :00 1 Ea Oral Oxycodone/A Elyssa N 1 Q 4 Hr Prn cetaminophe 07-24 Aminata Sandoval Pain n (Percocet 00:00: 00:00 5/325 Mg*) 00 :00 5 Mg/325 Mg Tab, 1 - 2 Ea Oral No Home 2012- No Medications 05-27 1 Ea Ea, 00:00 :00 No Home 2012- No Medications 05-27 00:00 :00 No Home 2006- No Medications 03-19 1 Ea Ea, 00:00 :00 No Home 2006- No Medications 03-19 00:00 :00 Problems Condition Condition Condition Status Onset Resolution Last Treatin g Comments Name Details Category Date Date Treatment Clinician Date Upper Problem Inactiv respiratory e 1-25 infection 10:11: 00 Dyspnea Dyspnea Problem Inactiv e Upper Upper Problem Active respiratory respiratory tract tract infection infection Acute Acute Problem Active exacerbatio exacerbatio n of n of chronic chronic obstructive obstructive pulmonary pulmonary disease disease Tobacco Tobacco Problem Active abuse abuse Procedures Procedure Date / Time Performed Performing Clinician Devic e OFFICE/OUTPATIENT VISIT EST 2020-04-13 14:15:00 Results Test Description Test Time Test Comments Text Results Atomic Results Result Comments Blood leukocytes automated count (number/volume) 2019-08-02 06:1 0:00 Test Item Value Reference Range Comments White Blood Count (test code = 6690-2) 8.6 3.6-11.1 Blood erythrocytes automated count (number/volume)2019-08-02 06:10:00 Test Item Value Reference Range Comments Red Blood Count (test code = 789-8) 4.39 4.27-5.49 Blood hemoglobin measurement (mass/volume)2019-08-02 06:10:00 Test Item Value Reference Range Comments Hemoglobin (test code = 718-7) 14.4 12.9-16.1 Automated blood hematocrit (volume fraction)2019-08-02 06:10:00 Test Item Value Reference Range Comments Hematocrit (test code = 4544-3) 42.2 37.7-46.5 Automated erythrocyte mean corpuscular [id number] 06:10:00 Test Item Value Reference Range Comments Mean Corpuscular Volume (test code = 787-2) 96.1 79.3 -94.8 Automated erythrocyte mean corpuscular hemoglobin (mass per erythrocyte) 2019-08-02 06:10:00 Test Item Value Reference Range Comments Mean Corpuscular Hemoglobin (test code = 785-6) 32.7 26.8-33.2 Automated erythrocyte mean corpuscular hemoglobin concentration measurement (mass/volume)2019-08-02 06:10:00 Test Item Value Reference Range Comments Mean Corpuscular Hemoglobin Concent (test code = 34.1 33.5-35.5 786-4) Automated erythrocyte distribution width [id number] 06:10:00 Test Item Value Reference Range Comments Red Cell Distribution Width (test code = 788-0) 13.3 12.0-15.1 Automated blood platelet count (count/volume)2019-08-02 06:10:00 Test Item Value Reference Range Comments Platelet Count (test code = 777-3) 174 165-353 Automated blood platelet mean volume omotjwycexw3768-16-79 06:10:00 Test Item Value Reference Range Comments Mean Platelet Volume (test code = 71585-2) 9.1 7.5-1 0.6 Automated blood neutrophil count as percentage of total wkltekyraz3110-09-59 06:10:00 Test Item Value Reference Range Comments Neutrophils (%) (Auto) (test code = 770-8) 79.7 43.2- 71.5 Automated blood lymphocyte count as percentage of total vubsfvkqdr5025-47-39 06:10:00 Test Item Value Reference Range Comments Lymphocytes (%) (Auto) (test code = 736-9) 9.1 16.8- 43.4 Automated blood monocyte count as percentage of total dildzusnih7460-82-38 06:10:00 Test Item Value Reference Range Comments Monocytes (%) (Auto) (test code = 5905-5) 11.1 4.6-12 .4 Automated blood eosinophil count as percentage of total pbhmfroigr2029-43-87 06:10:00 Test Item Value Reference Range Comments Eosinophils (%) (Auto) (test code = 713-8) 0.0 0.7-7 .8 Automated blood basophil count as percentage of total ojfwghehjk4062-73-20 06:10:00 Test Item Value Reference Range Comments Basophils (%) (Auto) (test code = 706-2) 0.1 0.2-1.2 Blood neutrophils automated count (number/volume)2019-08-02 06:10:00 Test Item Value Reference Range Comments Neutrophils # (Auto) (test code = 751-8) 6.8 1.9-7.2 Automated blood lymphocyte count (number/volume)2019-08-02 06:10:00 Test Item Value Reference Range Comments Lymphocytes # (Auto) (test code = 731-0) 0.8 1.1-2.7 Blood monocytes automated count (number/volume)2019-08-02 06:10:00 Test Item Value Reference Range Comments Monocytes # (Auto) (test code = 742-7) 1.0 0.3-0.8 Automated blood eosinophil helth9967-74-64 06:10:00 Test Item Value Reference Range Comments Eosinophils # (Auto) (test code = 711-2) 0.0 0.0-0.5 Automated blood basophil count (count/volume)2019-08-02 06:10:00 Test Item Value Reference Range Comments Basophils # (Auto) (test code = 704-7) 0.0 0.0-0.1 Sodium xjerg4319-88-73 06:10:00 Test Item Value Reference Range Comments Sodium Level (test code = 346724072) 141 137-144 Potassium scgcg1644-03-53 06:10:00 Test Item Value Reference Range Comments Potassium Level (test code = 358824598) 4.1 3.1-5.1 Chloride yhwjw9883-82-99 06:10:00 Test Item Value Reference Range Comments Chloride Level (test code = 226351133) 108 101-110 Carbon dioxide elewp6627-60-79 06:10:00 Test Item Value Reference Range Comments Carbon Dioxide Level (test code = 33902756) 24 22-2 9 Glucose otrcq9381-44-14 06:10:00 Test Item Value Reference Range Comments Glucose Level (test code = 46360899) 112 70-105 [id number] 06:10:00 Test Item Value Reference Range Comments Blood Urea Nitrogen (test code = 558001590) 18.0 8.4- 25.7 Creatinine xeitm0546-71-62 06:10:00 Test Item Value Reference Range Comments Creatinine (test code = 418837037) 1.00 0.72-1.25 Estimation of creatinine nbshggrua6563-19-75 06:10:00 Test Item Value Reference Range Comments Estimated Creatinine Clearance 82.05 P T Ht: 185.42cm, PT Wt: 67.9KG Calc (test code = 414339906) Anion gap uvkoyqmkkuw4733-42-76 06:10:00 Test Item Value Reference Range Comments Anion Gap (test code = 27238285) 13 7-16 Xnnlfbn9370-30-29 06:10:00 Test Item Value Reference Range Comments Calcium Level (test code = 51640989) 9.3 8.4-10.2 LHMKPKCAX8156-09-82 08:22:[address] [id number] Patient: INOCENCIA COOPER : 1965 Sex: M Address:[address] [place] [address] Unit #: [id number] REQ SEQ #: [id number] Location: ED Room #: Ordering: MAUREEN DUFFY DO Diagnosis: DIFFICULTY BREATHING CHEST 2 VIEWS PA AND LATERAL Clinical Information: Dyspnea Comparison: 08/03/2017 FINDINGS: Heart size and pulmonary vasculature within normal limits. Pulmonary queta within normal limits. No pulmonary consolidation, pneumothorax or pleural effusions. No acute osseous abnormality. IMPRESSION:No evidence of acute cardiopulmonary disease. Final report electronically signed by: Megan Shea DO Signed by: LONG SHEA DO 08/01/19 0818 cc: [facility] [id number] 07:45:00 Test Item Value Reference Range Comments Bedside Troponin I (test code = Bedside Troponin I) 0.00 0.03-0.118 pH venous bogqx8836-83-50 07:43:00 Test Item Value Reference Range Comments Venous Blood pH (test code = 2746-6) 7.39 7.32-7.45 Venous blood partial pressure of carbon dioxide qopjsuyrqiy6398-42-25 07:43:00 Test Item Value Reference Range Comments Venous Blood Partial Pressure CO2 (test code = 2021-4) 42 45-60 Venous blood partial pressure of oxygen usoywnzjblk5845-14-51 07:43:00 Test Item Value Reference Range Comments Venous Blood Partial Pressure O2 (test code = 2705-2) 44 35-40 Venous blood oxygen saturation calculated from oxygen partial bhssexwx9304-46-26 07:43:00 Test Item Value Reference Range Comments Venous Blood Oxygen Saturation (test code = 22545-0) 79 65-75 Quantitative venous blood bicarbonate liznyvmopul3324-25-29 07:43:00 Test Item Value Reference Range Comments Venous Blood HCO3 (test code = 50371-4) 25 22-27 Base excess, venous ooruv0260-25-58 07:43:00 Test Item Value Reference Range Comments Venous Blood Base Excess (test code = 1927-3) -1 -2 -2 Blood Gas Patient Qoosadnxth1764-01-90 07:43:00 Test Item Value Reference Range Comments Blood Gas Patient Conditions (test code = Blood Gas RA Patient Conditions) Blood Gas Puncture Vlsp5111-35-64 07:43:00 Test Item Value Reference Range Comments Blood Gas Puncture Site (test code = VENOUS CATHETER SITE Blood Gas Puncture Site) Brain natriuretic ixfmcyv8249-08-05 07:38:00 Test Item Value Reference Range Comments B-Type Natriuretic Peptide < 10.0 0.0-100.0 Plasm a concentrations of (test code = 818743880) natriure tic peptides may be elevated in abimael ents with acute myocardial infar ction and renal insufficiency. [id number] 10:06:[address] [id number] ------ Patient: INOCENCIA COOPER : 1965 Sex: M Address: [address] [place] [address] Unit #: [id number] REQ SEQ#: [id number] Location: ANA Room #: Ordering: AUGUST PORTILLO PA-C Diagnosis: COUGH/RIB PAIN Examination: PA and lateral chest x-ray History: Cough, rib pain, smoker Findings: The cardiomediastinal silhouette is within normal limits. The lungs appear clear . Negative for pleural effusion. Symmetric bilateral nodular opacities are compatible with nipple shadows this could be confirmed with nipple markers Impression: Symmetric nodular opacities likely nipple shadows otherwise Negative for acuteprocess. Final report electronically signed by: Red Jones MD Signed by: CAMELIA JONES MD 08/03/17 1002 cc: AUGUST PORTILLO PA-C, DOUGLAS W MD Assessments Condition Name Status Diagnosis Date Treating Clinici an Orthopnea Active Shortness of breath Active Chronic obstructive pulmonary disease, Active unspecified Cough Active Encounters Start End Encounter Admission Attending Care Care Encounter Date/Time Date/Time Type Type Clinicians Facility Department ID 2020-04-13 2020-04-13 [id number] 14:15:00 Jl Plascencia [id number] and [id number] [facility], 2019-08-01 2019-08-02 [facility] [id number] 09:16:00 11:45:00 KATHLEEN 68 2017-08-03 2017-08-03 [facility] [id number] 08:44:00 10:19:00 AUGUST 22 Immunizations Ordered Immunization Filled Immunization Date Status Commen ts Refusal Name Name Reason Pneumococcal 2019-08-02 Completed Polysacchride 00:00:00 Vaccine 23-valent Influenza vaccine, 2019-08-02 Completed Quad, PF, 00:00:00 Vaccination Unknown Completed Payers Payer Name Policy Type Policy Number Effective Date Expiration D ate Social History Social Habit Start Date Stop Date Comments Current every day smoker;Heavy tobacco smoker 2019-08-02 08:12:0 0 Y - 1 PPD 2013-05-27 03:02:00 Y - DRINKS "6 PK OR SO ON THE WEEKENDS" 2013-05-27 03:02:00 Social History Observation Description Sex Male Vital Signs Vital Name Observation Time Observation Value Comments WEIGHT 2019-08-01 10:10:00 67.9000 kg HEIGHT 2019-08-01 10:10:00 185.057863 cm WEIGHT 2019-08-01 07:08:00 73.4000 kg HEIGHT 2019-08-01 07:08:00 185.977247 cm WEIGHT 2017-08-03 08:44:00 71.6000 kg HEIGHT 2017-08-03 08:44:00 185.204256 cm Weight 2019-08-01 10:10:00 149.69 [lb_av] BMI (Body Mass Index) 2019-08-01 10:10:00 19.0 kg/m2 Hospital Discharge Instructions Additional Instructions Discharge Instructions Nursing Discharge Assessment Cognitive Status: Awake,Alert, Appropriate, Follows Commands Functional Status: Ambulates Independently, Eats Independently,Bathes Independently, Dresses Independently, Toilets Independently, Medicates Self Indepen. Is your patient leaving the hospital with any of these: None Plan of Care #1 Problem:: COPD exacerbation Plan:: find a primary care physician and follow up within 2 weeks from being discharged practice breathing exercises when tolerated take medications as prescribed Goal:: free from copd exacerbation Level OfPain At Discharge: 0 Pain Scale Does The Pt Understand How To Manage Their Pain At Home?: Yes Pain Management Plan of Care: TakeMedOnlyAsPrescribed, IncreaseActivityAsTolerat , NotifyMDForIncreasingPain Does Patient Have Valuables In Possession: Yes Comment: clothes, shoes, wallet, keys, phone, dairy frozen manager Valuables Returned by Security: N/A Physician Documentation Discharge Diagnoses: (1) COPD exacerbation (2) Tobacco abuse Condition: Good Height (Feet): 6 Height (Inches): 1.00 Weight (Kilograms): 67.9000 Diet: Regular Diet Wound Care Instructions: N/A General: As Tolerated
== END 2020-08-04 13:20 | disposition left against medical advice (07) | DRG 192 ==
LOC: ER 21:38 → EH 08-03 03:02 → 4W 08-03 04:50
PROVIDERS: ADMIT Family Medicine; ATTEND Internal Medicine
DX: J44.1 Chronic obstructive pulmonary disease with (acute) exacerbation (principal); R79.89 Other specified abnormal findings of blood chemistry; F17.210 Nicotine dependence, cigarettes, uncomplicated
CPT/HCPCS: 36415; 71045; 80048; 80053; 80061; 81001; 82550; 82553; 83880; 84484; 85025; 85027; 93005; 93010; 93306; 94640; 99285; 0202U; J2920; J7030